=== PATIENT | female | born 1955 | race American Indian/Alaskan Native ===

== ENCOUNTER 2018-07-13 17:40 | Emergency (ER) | payer SELFPAY ==
[2018-07-13] MEDS ORDERED: NORCO 10/325 PO ONE (20:31)
--- NOTE | 2018-07-13 20:35 | Emergency Department Report ---
ED Recheck HPI - General Chief Complaint: Back Pain/Injury Stated Complaint: LOWER BACK PAIN TO RIGHT LEG Time Seen by Provider: 07/13/18 19:47 Source: patient Mode of arrival: Wheelchair Limitations: Physical Limitation - History of Present Illness Initial Comments: This is a 62-year-old female nontoxic in appearance with no signs of distress came in today with son requesting for with a medication refill. Patient stated that she came from a correction from [place] and Juan Ramirez is her primary care doctor. Patient stated that he refilled her medication called into pharmacy here in [place] but was not able to refill her 10 mg. Patient denies any symptoms. She states she has chronic back pain and this is what she takes medication. Patient denies any chest pain, short of breath, fever, chills , nausea, vomiting, headache or stiff neck. Patient denies any drug allergies. MD Complaint: medication refill request Returns Today for: request for prescription Symptoms Since Prior Visit: no new symptoms Associated Symptoms: none. denies: fever, chills, chest pain, shortness of breath, rash, malaise, nasuea, abdominal pain - Related Data Previous Rx's Medication Instructions Recorded Last Taken Type HYDROcodone/ACETAMINOPHEN [[place] 1 each PO DAILY PRN #6 tablet 07/13/18 Unknown Rx 10-325 Tablet] Allergies Allergy/AdvReac Type Severity Reaction Status Date / Time No Known Allergies Allergy Unverified 07/13/18 18:01 ED Review of Systems ROS: Stated complaint: LOWER BACK PAIN TO RIGHT LEG Other details as noted in HPI Constitutional: denies: chills, fever Eyes: denies: eye pain, eye discharge, vision change ENT: denies: ear pain, throat pain Respiratory: denies: cough, shortness of breath, wheezing Cardiovascular: denies: chest pain, palpitations Endocrine: no symptoms reported Gastrointestinal: denies: abdominal pain, nausea, diarrhea Genitourinary: denies: urgency, dysuria, discharge Musculoskeletal: back pain. 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 - Surgical History Additional Surgical History: cervical spine C7 fused with bone - Social History Smoking Status: Current Every Day Smoker Substance Use Type: None - Medications Home Medications: Home Medications Medication Instructions Recorded Confirmed Last Taken Type HYDROcodone/ACETAMINOPHEN [[place] 1 each PO DAILY PRN #6 tablet 07/13/18 Unknown Rx 10-325 Tablet] ED Physical Exam - General Limitations: No Limitations General appearance: alert, in no apparent distress - Head Head exam: Present: atraumatic, normocephalic - Eye Eye exam: Present: normal appearance Pupils: Present: normal accommodation - ENT ENT exam: Present: normal exam, mucous membranes moist - Neck Neck exam: Present: normal inspection, full ROM. Absent: tenderness, meningismus, lymphadenopathy - Respiratory Respiratory exam: Present: normal lung sounds bilaterally. Absent: respiratory distress, wheezes, rales, rhonchi, stridor, chest wall tenderness, accessory muscle use, decreased breath sounds, prolonged expiratory - Cardiovascular Cardiovascular Exam: Present: regular rate, normal rhythm, normal heart sounds. Absent: irregular rhythm, systolic murmur, diastolic murmur, rubs, gallop - GI/Abdominal GI/Abdominal exam: Present: soft, normal bowel sounds - Extremities Exam Extremities exam: Present: normal inspection, full ROM, normal capillary refill. Absent: tenderness, joint swelling - Back Exam Back exam: Present: normal inspection, full ROM, paraspinal tenderness (right sided paraspinal lumbar). Absent: tenderness, CVA tenderness (R), CVA tenderness (L), muscle spasm, vertebral tenderness, rash noted - Neurological Exam Neurological exam: Present: alert, oriented X3 - Psychiatric Psychiatric exam: Present: normal affect, normal mood - Skin Skin exam: Present: warm, dry, intact, normal color. Absent: rash ED Course Vital Signs 07/13/18 17:53 Temperature 97.9 F Pulse Rate 91 H Respiratory 16 Rate Blood Pressure 130/74 O2 Sat by Pulse 97 Oximetry - Reevaluation(s) Reevaluation #1: 07/13/18 20:36 Patient is speaking in full sentences with no signs of distress noted. ED Recheck MDM - Medical Decision Making Carrie MIGUEL has been ran and no indications of any narcotics being prescribed. I tried to call patients primary care doctor at with no answer or answering services. Patient does have a empty prescription of [place] 10 mg daily with orders to refill at 06/24/2018. I gave patient a dose of [place] in the ER due to sun the present stated he will junk the patient was discharged. I will refill a short course of [place] until she is able to see a PCP. Patient was instructed to Follow-up with a primary care doctor in 3-5 days or if symptoms worsen and continue return to emergency room as soon as possible. At time of discharge, the patient does not seem toxic or ill in appearance. No acute signs of distress noted. Patient agrees to discharge treatment plan of care. No further questions noted by the patient. Critical care attestation.: If time is entered above; I have spent that time in minutes in the direct care of this critically ill patient, excluding procedure time. ED Disposition Clinical Impression: Medication refill Chronic back pain Qualifiers: Back pain location: low back pain Back pain laterality: unspecified Sciatica presence: unspecified whether sciatica present Qualified Code(s): M54.5 - Low back pain Disposition: TO HOME OR SELFCARE Is pt being admited?: No Does the pt Need Aspirin: No Condition: Stable Instructions: Oxycodone/Acetaminophen (By mouth) Additional Instructions: Follow-up with a primary care doctor in 3-5 days or if symptoms worsen and continue return to emergency room as soon as possible. Prescriptions: HYDROcodone/ACETAMINOPHEN [[place] 10-325 Tablet] 1 each PO DAILY PRN #6 tablet PRN Reason: pain Referrals: PRIMARY CAREMD [Primary Care Provider] - 3-5 Days WILLIAM LENTZ MD [Staff Physician] - 3-5 Days DAYAN SOLORZANO MD [Referring] - 3-5 Days [facility] [Outside] - 3-5 Days [facility] [place] [Outside] - 3-5 Days
[2018-07-13 21:34] VITALS: BP 142/76
== END 2018-07-13 20:56 | disposition home or self-care (01) ==
LOC: ED 17:40
DX: M54.5 Low back pain (principal); Z76.0 Encounter for issue of repeat prescription; G89.29 Other chronic pain; F17.200 Nicotine dependence, unspecified, uncomplicated
CPT/HCPCS: 99282

== ENCOUNTER 2019-09-30 13:37 | Emergency (ER) | payer MEDICARE ==
[2019-09-30 14:19] VITALS: BP 133/98
--- NOTE | 2019-09-30 14:19 | Event Note ---
ED Screening Note Date of service: 09/30/19 Time: 14:16 ED Screening Note: Pt complains of urinary frequency and left lower abdominal pain x 2 days, left ear pain and ringing x 1 week, and 1 lb weight loss in 1 month denies fever 8/10 pain in abdomen negative L CVA tenderness denies hematochezia/melena or diverticulosis This initial assessment/diagnostic orders/clinical plan/treatment(s) is/are subject to change based on patients health status, clinical progression and re- assessment by fellow clinical providers in the ED. Further treatment and workup at subsequent clinical providers discretion. Patient/guardian urged not to elope from the ED as their condition may be serious if not clinically assessed and managed. Initial orders include: labs
[2019-09-30 15:07] LABS: Alanine Aminotransferase 11 units/L (7-56); Albumin 4.2 g/dL (3.9-5); BUN/Creatinine Ratio 17; Blood Urea Nitrogen 10 mg/dL (7-17); Calcium 9.8 mg/dL (8.4-10.2); Hemolysis Index 10
[2019-09-30 15:08] LABS: Basophils # (Auto) 0.1 K/mm3 (0.0-0.1); Basophils % (Auto) 1.4 % (0.0-1.8); Eosinophils # (Auto) 0.1 K/mm3 (0.0-0.4); Hematocrit 39.3 % (30.3-42.9); Lymphocytes # (Auto) 2.6 K/mm3 (1.2-5.4); Lymphocytes % (Auto) 50.8 % (13.4-35.0); Mean Corpuscular HGB Conc 33 % (30-34); Mean Corpuscular Volume 98 fl (79-97); Monocytes # (Auto) 0.3 K/mm3 (0.0-0.8); Platelet Count 435 K/mm3 (140-440); Red Cell Distribution Width 15.4 % (13.2-15.2)
[2019-09-30] MEDS ORDERED: SODIUM CHLORIDE 0.9% 1000 ML 1,000 ML IV ONE (15:36)
[2019-09-30] MEDS ORDERED: ONDANSETRON 4 MG/2 ML INJ IV ONE (15:36)
[2019-09-30] MEDS ORDERED: MORPHINE 2 MG/1 ML INJ IV ONE (15:36)
[2019-09-30 15:52] LABS: Bilirubin,Urine NEG (Negative); Blood,Urine NEG (Negative); Color,Urine Yellow (Yellow); Mucus,Urine FEW /HPF; Protein,Urine <15 mg/dL mg/dL (Negative); Urobilinogen,Urine < 2.0 mg/dL (<2.0)
--- NOTE | 2019-09-30 16:22 | Emergency Department Report ---
ED Abdominal Pain HPI - General Chief Complaint: Abdominal Pain Stated Complaint: R SIDE PAIN/FREQUENT URINATION Time Seen by Provider: 09/30/19 14:16 Source: patient Mode of arrival: Ambulatory Limitations: No Limitations - History of Present Illness Initial Comments: This is a 64-year-old female nontoxic, well nourished in appearance, no acute signs of distress presents to the ED with c/o of nausea and abdominal pain 2 days. Patient also stated has dysuria and urinary frequency. Denies any flank pain. Patient also stated has left side decreased hearing. Patient denies any vomiting. Patient describes abdominal pain as cramping and aching with level of 3/10 left lower side. Denies any ear pain or mastoid tenderness. Denies any ear canal discharge. Patient denies chest pain, short of breath, fever, chills, headache, stiff neck, numbness or tingling. Patient denies any diarrhea or constipation. Patient denies any recent travels. Patient denies any allergies. MD Complaint: abdominal pain -: days(s) (2) Location: LLQ Radiation: none Migration to: no migration Severity: mild Severity scale (0 -10): 8 Quality: cramping, aching Consistency: constant Improves With: nothing Worsens With: nothing Associated Symptoms: nausea, dysuria. denies: vomiting, diarrhea, fever, chills, constipation, hematemesis, hematochezia, melena, hematuria, anorexia, syncope - Related Data Previous Rx's Medication Instructions Recorded Last Taken Type HYDROcodone/ACETAMINOPHEN [[place] 1 each PO DAILY PRN #6 tablet 07/13/18 Unknown Rx 10-325 Tablet] Nitrofurantoin [place]/M-Cryst 100 mg PO Q12HR 7 Days #14 capsule 11/20/18 Unknown Rx [Macrobid CAP] Phenazopyridine [Pyridium] 100 mg PO TID #6 tab 11/20/18 Unknown Rx Acetaminophen/Codeine [Tylenol 1 tab PO Q6H PRN #12 tab 09/30/19 Unknown Rx /Codeine # 3 tab] Ondansetron [Zofran Odt] 4 mg PO Q8HR PRN #20 tab.rapdis 09/30/19 Unknown Rx Sulfamethoxazole/Trimethoprim 1 each PO BID #14 tablet 09/30/19 Unknown Rx [Bactrim DS TAB] Allergies Allergy/AdvReac Type Severity Reaction Status Date / Time No Known Allergies Allergy Verified 11/19/18 17:42 ED Review of Systems ROS: Stated complaint: R SIDE PAIN/FREQUENT URINATION Other details as noted in HPI Constitutional: denies: chills, fever Eyes: denies: eye pain, eye discharge, vision change ENT: denies: ear pain, throat pain Respiratory: denies: cough, shortness of breath, wheezing Cardiovascular: denies: chest pain, palpitations Endocrine: no symptoms reported Gastrointestinal: abdominal pain, nausea. denies: vomiting, diarrhea, constipation Genitourinary: dysuria, frequency. 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 CHRONIC NECK PAIN - Surgical History Additional Surgical History: cervical spine C7 fused with bone - Social History Smoking Status: Never Smoker Substance Use Type: None - Medications Home Medications: Home Medications Medication Instructions Recorded Confirmed Last Taken Type HYDROcodone/ACETAMINOPHEN [[place] 1 each PO DAILY PRN #6 tablet 07/13/18 Unknown Rx 10-325 Tablet] Nitrofurantoin [place]/M-Cryst 100 mg PO Q12HR 7 Days #14 capsule 11/20/18 Unknown Rx [Macrobid CAP] Phenazopyridine [Pyridium] 100 mg PO TID #6 tab 11/20/18 Unknown Rx Acetaminophen/Codeine [Tylenol 1 tab PO Q6H PRN #12 tab 09/30/19 Unknown Rx /Codeine # 3 tab] Ondansetron [Zofran Odt] 4 mg PO Q8HR PRN #20 tab.rapdis 09/30/19 Unknown Rx Sulfamethoxazole/Trimethoprim 1 each PO BID #14 tablet 09/30/19 Unknown Rx [Bactrim DS TAB] ED Physical Exam - General Limitations: No Limitations General appearance: alert, in no apparent distress - Head Head exam: Present: atraumatic, normocephalic - Expanded ENT Exam Expanded Ear exam: Present: normal external inspection TM/Canal exam: Cerumen Impaction: Left TM Mouth exam: Present: normal external inspection. Absent: drooling, trismus, muffled voice Teeth exam: Present: normal inspection Throat exam: Positive: normal inspection - Neck Neck exam: Present: normal inspection, full ROM. Absent: tenderness, meningismus, lymphadenopathy - Respiratory Respiratory exam: Present: normal lung sounds bilaterally. Absent: respiratory distress, wheezes, rales, rhonchi, stridor, chest wall tenderness, accessory muscle use, decreased breath sounds, prolonged expiratory - Cardiovascular Cardiovascular Exam: Present: regular rate, normal rhythm, normal heart sounds. Absent: bradycardia, tachycardia, irregular rhythm, systolic murmur, diastolic murmur, rubs, gallop - GI/Abdominal GI/Abdominal exam: Present: soft, tenderness (LLQ), normal bowel sounds. Absent: distended, guarding, rebound, rigid, diminished bowel sounds - Extremities Exam Extremities exam: Present: normal inspection, full ROM, normal capillary refill. Absent: tenderness - Back Exam Back exam: Present: normal inspection, full ROM. Absent: tenderness, CVA tenderness (R), CVA tenderness (L), muscle spasm, paraspinal tenderness, vertebral tenderness, rash noted - Neurological Exam Neurological exam: Present: alert, oriented X3, normal gait - Psychiatric Psychiatric exam: Present: normal affect, normal mood - Skin Skin exam: Present: warm, dry, intact, normal color. Absent: rash ED Course Vital Signs 09/30/19 13:47 Temperature 98.9 F Pulse Rate 89 Respiratory 18 Rate Blood Pressure 133/98 O2 Sat by Pulse 100 Oximetry - Reevaluation(s) Reevaluation #1: 09/30/19 16:28 Patient is speaking in full sentences with no signs of distress noted. ED Medical Decision Making - Lab Data Result diagrams: 09/30/19 14:30 09/30/19 14:30 - Medical Decision Making This is a 64-year-old female that presents with abdominal pain, nausea, UTI, and left ear cerumen impaction. Patient is stable and was examined by me. There is no abdominal tenderness. Negative signs of symptoms of appendicitis. Labs obtained. UA obtained. CT of abdomen obtained and dictated by the radiologist. Patient is notified of the report with no questions noted by the patient. Vital signs are stable prior to discharge. Patient received medical treatment in the ED which patient stated symptoms has resovled and subsided. Was instructed note to operate any machinery due to possible drowsiness and stated someone will drive the patient home. A by mouth challenge has been obtained and patient tolerated well with no nausea vomiting. Patient was also instructed to Follow- up with a primary care doctor in 3-5 days or if symptoms worsen and continue return to emergency room as soon as possible. At time of discharge, the patient does not seem toxic or ill in appearance. No acute signs of distress noted. Patient agrees to discharge treatment plan of care. No further questions noted by the patient. Critical care attestation.: If time is entered above; I have spent that time in minutes in the direct care of this critically ill patient, excluding procedure time. ED Disposition Clinical Impression: Left ear impacted cerumen, Nausea UTI (urinary tract infection) Qualifiers: Urinary tract infection type: acute cystitis Hematuria presence: without hemat uria Qualified Code(s): N30.00 - Acute cystitis without hematuria Abdominal pain Qualifiers: Abdominal location: unspecified location Qualified Code(s): R10.9 - Unspecified abdominal pain Disposition: TO HOME OR SELFCARE Is pt being admited?: No Does the pt Need Aspirin: No Condition: Stable Instructions: Abdominal Pain (ED), Acute Nausea and Vomiting (ED), Urinary Tract Infection in Women (ED) Additional Instructions: Follow-up with a primary care doctor in 3-5 days or if symptoms worsen and continue return to emergency room as soon as possible. Prescriptions: Sulfamethoxazole/Trimethoprim [Bactrim DS TAB] 1 each PO BID #14 tablet Acetaminophen/Codeine [Tylenol /Codeine # 3 tab] 1 tab PO Q6H PRN #12 tab PRN Reason: Pain , Severe (7-10) Ondansetron [Zofran Odt] 4 mg PO Q8HR PRN #20 tab.rapdis PRN Reason: Nausea Referrals: PRIMARY CARE, [Primary Care Provider] - 3-5 Days WILLIAM LENTZ MD [Staff Physician] - 3-[address] [facility] [Outside] - 3-[address] [facility] [Outside] - 3-5 Days Time of Disposition: 17:46
--- NOTE | 2019-09-30 16:42 | Cat Scan Report ---
CT ABDOMEN AND PELVIS WITH CONTRAST INDICATION: abd pain. TECHNIQUE: Axial CT images were obtained through the abdomen and pelvis after 100 cc Omnipaque [address] scans at this location are performed using CT dose reduction for ALARA by means of automated exposure control. COMPARISON: None available. FINDINGS: LOWER CHEST: Calcified right lower lobe granuloma. Left lung base is clear. LIVER: No significant abnormality. GALLBLADDER: Surgically absent. BILE DUCTS: Mild linear ductal dilatation with common bile duct measuring 11 mm. PANCREAS: No significant abnormality. SPLEEN: No significant abnormality. ADRENALS: No significant abnormality. RIGHT KIDNEY and URETER: No significant abnormality. LEFT KIDNEY and URETER: Simple 1.6 cm left renal cyst. STOMACH and SMALL BOWEL: No significant abnormality. COLON: Moderate amount of solid stool throughout colon characteristic for constipation. No bowel obst ruction. APPENDIX: No significant abnormality. PERITONEUM: No free fluid. No free air. No fluid collection. LYMPH NODES: No significant adenopathy. AORTA and ARTERIES: No significant abnormality. IVC and VEINS: No significant abnormality. URINARY BLADDER: No significant abnormality. REPRODUCTIVE ORGANS: No significant abnormality. ADDITIONAL FINDINGS: None. SKELETAL SYSTEM: Moderate scoliosis with convexity towards right centered at L2 with moderate degener ative changes of lumbar spine. Mild geographic osteonecrosis of both femoral heads with mild to moder ate degenerative arthrosis of right hip and mild degenerative arthrosis of left hip. IMPRESSION: 1. Moderate constipation. 2. Mild biliary ductal dilatation status post cholecystectomy. Please correlate with LFTs. 3. No acute inflammatory process or bowel obstruction. 4. Focal geographic osteonecrosis involving both femoral heads with mild left and mild to moderate ri ght hip degenerative arthrosis Signer Name: Petros Carlton MD Signed: 09/30/2019 4:37 PM Workstation Name: [id number]
== END 2019-09-30 18:47 | disposition home or self-care (01) ==
LOC: ED 13:37
DX: N39.0 Urinary tract infection, site not specified (principal); H61.22 Impacted cerumen, left ear; R10.9 Unspecified abdominal pain; M54.2 Cervicalgia; G89.29 Other chronic pain; Z79.899 Other long term (current) drug therapy
CPT/HCPCS: 36415; 74177; 80053; 81001; 83690; 85025; 87086; 96374; 96375; 99284; J2270; J2405; J7030; Q9967

== ENCOUNTER 2019-10-07 16:36 | Emergency (ER) | payer MEDICARE ==
[2019-10-07 16:50] VITALS: BP 107/66
--- NOTE | 2019-10-07 16:50 | Emergency Department Report ---
Blank Doc - Documentation Documentation: 64-year-old female that presents with frequent urination. Stated has been jordan ing bactrim. This initial assessment/diagnostic orders/clinical plan/treatment(s) is/are subject to change based on patient's health status, clinical progression and re- assessment by fellow clinical providers in the ED. Further treatment and workup at subsequent clinical providers discretion. Patient/guardians urged not to elope from the ED as their condition may be serious if not clinically assessed and managed. Initial orders include: 1- Patient sent to [facility] for further evaluation and treatment 2- UA
--- NOTE | 2019-10-07 18:33 | Emergency Department Report ---
ED Female HPI - General Chief complaint: Urogenital-Female Stated complaint: POSS UTI Time Seen by Provider: 10/07/19 16:45 Source: patient Mode of arrival: Wheelchair Limitations: No Limitations - History of Present Illness Initial comments: This is a 64-year-old -[place] female who presents to the emergency room with urinary frequency for 1 week. Patient states she is going to the restroom every 2 hours and also reports some pelvic pain. States she was seen in this emergency room last Tuesday and diagnosed with a urinary tract infection. Patient states she took her last Bactrim this morning. She denies dysuria, fever, chills, vaginal bleeding, or back pain. MD Complaint: other (urinary frequency) Onset/Timin -: week(s) Location: suprapubic Radiation: non-radiating Severity: moderate Severity scale (0 -10): 6 Quality: aching Consistency: intermittent Improves with: none Worsens with: urination Are you Now?: No Associated Symptoms: abdominal pain. denies: vaginal discharge, vaginal bleed ing, nausea/vomiting, fever/chills, headaches, loss of appetite, dysuria, hematuria, rash, seizure, shortness of breath, syncope, weakness - Related Data Previous Rx's Medication Instructions Recorded Last Taken Type HYDROcodone/ACETAMINOPHEN [[place] 1 each PO DAILY PRN #6 tablet 07/13/18 Unknown Rx 10-325 Tablet] Nitrofurantoin [place]/M-Cryst 100 mg PO Q12HR 7 Days #14 capsule 11/20/18 Unknown Rx [Macrobid CAP] Phenazopyridine [Pyridium] 100 mg PO TID #6 tab 11/20/18 Unknown Rx Acetaminophen/Codeine [Tylenol 1 tab PO Q6H PRN #12 tab 09/30/19 Unknown Rx /Codeine # 3 tab] Ondansetron [Zofran Odt] 4 mg PO Q8HR PRN #20 tab.rapdis 09/30/19 Unknown Rx Sulfamethoxazole/Trimethoprim 1 each PO BID #14 tablet 09/30/19 Unknown Rx [Bactrim DS TAB] Penicillin V Potassium 500 mg PO BID #14 tablet 10/07/19 Unknown Rx Allergies Allergy/AdvReac Type Severity Reaction Status Date / Time No Known Allergies Allergy Verified 11/19/18 17:42 ED Review of Systems ROS: Stated complaint: POSS UTI Other details as noted in HPI Constitutional: denies: chills, fever Respiratory: denies: cough, shortness of breath, wheezing Cardiovascular: denies: chest pain, palpitations Gastrointestinal: abdominal pain. denies: nausea, diarrhea Genitourinary: urgency, frequency. 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 CHRONIC NECK PAIN - Surgical History Past Surgical History?: Yes Additional Surgical History: cervical spine C7 fused with bone - Social History Smoking Status: Current Every Day Smoker Substance Use Type: None - Medications Home Medications: Home Medications Medication Instructions Recorded Confirmed Last Taken Type HYDROcodone/ACETAMINOPHEN [[place] 1 each PO DAILY PRN #6 tablet 07/13/18 Unknown Rx 10-325 Tablet] Nitrofurantoin [place]/M-Cryst 100 mg PO Q12HR 7 Days #14 capsule 11/20/18 Unknown Rx [Macrobid CAP] Phenazopyridine [Pyridium] 100 mg PO TID #6 tab 11/20/18 Unknown Rx Acetaminophen/Codeine [Tylenol 1 tab PO Q6H PRN #12 tab 09/30/19 Unknown Rx /Codeine # 3 tab] Ondansetron [Zofran Odt] 4 mg PO Q8HR PRN #20 tab.rapdis 09/30/19 Unknown Rx Sulfamethoxazole/Trimethoprim 1 each PO BID #14 tablet 09/30/19 Unknown Rx [Bactrim DS TAB] Penicillin V Potassium 500 mg PO BID #14 tablet 10/07/19 Unknown Rx ED Physical Exam - General Limitations: No Limitations General appearance: alert, in no apparent distress - Respiratory Respiratory exam: Present: normal lung sounds bilaterally. Absent: respiratory distress - Cardiovascular Cardiovascular Exam: Present: regular rate, normal rhythm. Absent: systolic murmur, diastolic murmur, rubs, gallop - GI/Abdominal GI/Abdominal exam: Present: soft, normal bowel sounds. Absent: distended, tenderness, guarding, rebound, rigid - Back Exam Back exam: Present: CVA tenderness (R). Absent: CVA tenderness (L) - Neurological Exam Neurological exam: Present: alert, oriented X3 - Psychiatric Psychiatric exam: Present: normal affect, normal mood - Skin Skin exam: Present: warm, dry, intact, normal color. Absent: rash ED Course Vital Signs 10/07/19 10/07/19 16:49 19:07 Temperature 99.5 F Pulse Rate 113 H 105 H Respiratory 20 17 Rate Blood Pressure 107/66 O2 Sat by Pulse 98 97 Oximetry ED Medical Decision Making - Lab Data Lab Results 10/07/19 Range/Units 18:29 Urine Color Yellow (Yellow) Urine Turbidity Clear (Clear) Urine pH 6.0 (5.0-7.0) Ur Specific [place] 1.011 (1.003-1.030) Urine Protein <15 mg/dl (Negative) mg/dL Urine Glucose (UA) Neg (Negative) mg/dL Urine Ketones Neg (Negative) mg/dL Urine Blood Neg (Negative) Urine Nitrite Neg (Negative) Urine Bilirubin Neg (Negative) Urine Urobilinogen < 2.0 (<2.0) mg/dL Ur Leukocyte Esterase Tr (Negative) Urine WBC (Auto) 1.0 (0.0-6.0) /HPF Urine RBC (Auto) < 1.0 (0.0-6.0) /HPF U Epithel Cells (Auto) 1.0 (0-13.0) /HPF - Medical Decision Making Patient was examined by me. Patient is nontoxic appearing and stable. Vitals are stable. CVA tenderness on the right and negative abdominal tenderness. Obtained urinalysis, trace leukocyte esterase. Reviewed culture from October 02, 2019 visit positive for group B strep. Patient completed Bactrim which is not sensitive to group B strep. Start penicillin. Patient informed of results. Instructed to take Tylenol or ibuprofen for pain. Follow up with PCP or return to the ER with worsening symptoms. Patient discharged home in stable condition. Critical care attestation.: If time is entered above; I have spent that time in minutes in the direct care of this critically ill patient, excluding procedure time. ED Disposition Clinical Impression: Symptoms of urinary tract infection UTI (urinary tract infection) Qualifiers: Urinary tract infection type: acute cystitis Hematuria presence: without hematuria Qualified Code(s): N30.00 - Acute cystitis without hematuria Disposition: TO HOME OR SELFCARE Is pt being admited?: No Condition: Stable Instructions: Urinary Tract Infection in Women (ED) Additional Instructions: Increase fluid intake to 1L-2L daily. Prescriptions: Penicillin V Potassium 500 mg PO BID #14 tablet Referrals: [facility] [Outside] - 3-5 Days [facility] [Provider Group] - 3-5 Days [facility] [Provider Group] - 3-5 Days Forms: Work/School Release Form(ED) Time of Disposition: 19:13
[2019-10-07 18:46] LABS: Bilirubin,Urine NEG (Negative); Blood,Urine NEG (Negative); Color,Urine Yellow (Yellow); Protein,Urine <15 mg/dL mg/dL (Negative); RBC,Urine < 1.0 /HPF (0.0-6.0); Urobilinogen,Urine < 2.0 mg/dL (<2.0)
[2019-10-07] MEDS ORDERED: PENICILLIN V POTASSIUM 250 MG TAB PO ONE (19:29)
== END 2019-10-07 19:46 | disposition home or self-care (01) ==
LOC: ED 16:36
DX: N39.0 Urinary tract infection, site not specified (principal); M54.2 Cervicalgia; G89.29 Other chronic pain; F17.200 Nicotine dependence, unspecified, uncomplicated; Z79.899 Other long term (current) drug therapy
CPT/HCPCS: 81001; 87086

== ENCOUNTER 2019-10-11 18:09 | Emergency (ER) | payer MEDICARE ==
--- NOTE | 2019-10-11 23:32 | Emergency Department Report ---
ED Abdominal Pain HPI - General Chief Complaint: Abdominal Pain Stated Complaint: UTI/ABD PAIN Time Seen by Provider: 10/11/19 20:04 Source: patient Mode of arrival: Wheelchair Limitations: No Limitations - History of Present Illness Initial Comments: This is a pleasant 64-year-old female presents to the emergency department with chief complaint of urinary frequency. She states she has been in this emergency department twice for the same complaint and was initially told she had a urinary tract infection was given Bactrim for treatment the second time she returned the urine culture showed strep so the prescription was changed to penicillin. The p atient states she has not had any relief in her symptoms and is also complaining of some left lower quadrant abdominal pain that has been persistent during this time. She denies any associated fevers, chills, night sweats, headache, dizziness, blurry vision, chest pain, shortness of breath, nausea, vomiting, diarrhea, hematemesis, melena, she C, hematuria, dysuria or any other associated symptoms. MD Complaint: abdominal pain - Related Data Previous Rx's Medication Instructions Recorded Last Taken Type HYDROcodone/ACETAMINOPHEN [[place] 1 each PO DAILY PRN #6 tablet 07/13/18 Unknown Rx 10-325 Tablet] Nitrofurantoin [place]/M-Cryst 100 mg PO Q12HR 7 Days #14 capsule 11/20/18 Unknown Rx [Macrobid CAP] Phenazopyridine [Pyridium] 100 mg PO TID #6 tab 11/20/18 Unknown Rx Acetaminophen/Codeine [Tylenol 1 tab PO Q6H PRN #12 tab 09/30/19 Unknown Rx /Codeine # 3 tab] Ondansetron [Zofran Odt] 4 mg PO Q8HR PRN #20 tab.rapdis 09/30/19 Unknown Rx Sulfamethoxazole/Trimethoprim 1 each PO BID #14 tablet 09/30/19 Unknown Rx [Bactrim DS TAB] Penicillin V Potassium 500 mg PO BID #14 tablet 10/07/19 Unknown Rx Ciprofloxacin HCl [Ciprofloxacin 500 mg PO Q12HR #20 tab 10/12/19 Unknown Rx TAB] Fluconazole [Diflucan TAB] 150 mg PO ONCE #2 tablet 10/12/19 Unknown Rx Oxybutynin [Ditropan] 5 mg PO BID #10 tablet 10/12/19 Unknown Rx Allergies Allergy/AdvReac Type Severity Reaction Status Date / Time No Known Allergies Allergy Verified 11/19/18 17:42 ED Review of Systems ROS: Stated complaint: UTI/ABD PAIN Other details as noted in HPI Comment: All other systems reviewed and negative Constitutional: denies: chills, fever Eyes: denies: eye pain, eye discharge, vision change ENT: denies: ear pain, throat pain Respiratory: denies: cough, shortness of breath, wheezing Cardiovascular: denies: chest pain, palpitations Endocrine: no symptoms reported Gastrointestinal: as per HPI, abdominal pain. denies: nausea, diarrhea Genitourinary: as per HPI, frequency. 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 CHRONIC NECK PAIN - Surgical History Past Surgical History?: Yes Additional Surgical History: cervical spine C7 fused with bone - Social History Smoking Status: Current Every Day Smoker Substance Use Type: None - Medications Home Medications: Home Medications Medication Instructions Recorded Confirmed Last Taken Type HYDROcodone/ACETAMINOPHEN [[place] 1 each PO DAILY PRN #6 tablet 07/13/18 Unknown Rx 10-325 Tablet] Nitrofurantoin Pope/M-Cryst 100 mg PO Q12HR 7 Days #14 capsule 11/20/18 Unknown Rx [Macrobid CAP] Phenazopyridine [Pyridium] 100 mg PO TID #6 tab 11/20/18 Unknown Rx Acetaminophen/Codeine [Tylenol 1 tab PO Q6H PRN #12 tab 09/30/19 Unknown Rx /Codeine # 3 tab] Ondansetron [Zofran Odt] 4 mg PO Q8HR PRN #20 tab.rapdis 09/30/19 Unknown Rx Sulfamethoxazole/Trimethoprim 1 each PO BID #14 tablet 09/30/19 Unknown Rx [Bactrim DS TAB] Penicillin V Potassium 500 mg PO BID #14 tablet 10/07/19 Unknown Rx Ciprofloxacin HCl [Ciprofloxacin 500 mg PO Q12HR #20 tab 10/12/19 Unknown Rx TAB] Fluconazole [Diflucan TAB] 150 mg PO ONCE #2 tablet 10/12/19 Unknown Rx Oxybutynin [Ditropan] 5 mg PO BID #10 tablet 10/12/19 Unknown Rx ED Physical Exam - General Limitations: No Limitations General appearance: alert, in no apparent distress - Head Head exam: Present: atraumatic, normocephalic - Eye Eye exam: Present: normal appearance, PERRL, EOMI Pupils: Present: normal accommodation - ENT ENT exam: Present: normal exam, mucous membranes moist - Neck Neck exam: Present: normal inspection, full ROM. Absent: tenderness, meningismus - Respiratory Respiratory exam: Present: normal lung sounds bilaterally. Absent: respiratory distress, wheezes, rales, rhonchi, stridor - Cardiovascular Cardiovascular Exam: Present: regular rate, normal rhythm, normal heart sounds. Absent: systolic murmur, diastolic murmur, rubs, gallop - GI/Abdominal GI/Abdominal exam: Present: soft, tenderness (mild tenderness to left lower quadrant), normal bowel sounds. Absent: distended, guarding, rebound, rigid - Extremities Exam Extremities exam: Present: normal inspection. Absent: full ROM, tenderness - Back Exam Back exam: Present: normal inspection - Neurological Exam Neurological exam: Present: alert, oriented X3 - Psychiatric Psychiatric exam: Present: normal affect, normal mood - Skin Skin exam: Present: warm, dry, intact, normal color. Absent: rash ED Medical Decision Making - Lab Data Result diagrams: 10/11/19 23:29 10/11/19 23:29 Lab Results 10/11/19 10/11/19 10/12/19 Range/Units 23:29 23:29 00:36 WBC 6.6 (4.5-11.0) K/mm3 RBC 4.06 (3.65-5.03) M/mm3 Hgb 13.5 (10.1-14.3) gm/dl Hct 39.7 (30.3-42.9) % MCV 98 H (79-97) fl MCH 33 H (28-32) pg MCHC 34 (30-34) % RDW 14.7 (13.2-15.2) % Plt Count 268 (140-440) K/mm3 Lymph % (Auto) Cnc Cutting Operator Add Manual Diff Complete Total Counted 100 Seg Neutrophils % Cnc Cutting Operator Seg Neuts % (Manual) 30.0 L (40.0-70.0) % Band Neutrophils % 0 % Lymphocytes % (Manual) 64.0 H (13.4-35.0) % Reactive Lymphs % (Man) 0 % Monocytes % (Manual) 4.0 (0.0-7.3) % Eosinophils % (Manual) 2.0 (0.0-4.3) % Basophils % (Manual) 0 (0.0-1.8) % Metamyelocytes % 0 % Myelocytes % 0 % Promyelocytes % 0 % Blast Cells % 0 % Nucleated RBC % Not Reportable Seg Neutrophils # Man 2.0 (1.8-7.7) K/mm3 Band Neutrophils # 0.0 K/mm3 Lymphocytes # (Manual) 4.2 (1.2-5.4) K/mm3 Abs React Lymphs (Man) 0.0 K/mm3 Monocytes # (Manual) 0.3 (0.0-0.8) K/mm3 Eosinophils # (Manual) 0.1 (0.0-0.4) K/mm3 Basophils # (Manual) 0.0 (0.0-0.1) K/mm3 Metamyelocytes # 0.0 K/mm3 Myelocytes # 0.0 K/mm3 Promyelocytes # 0.0 K/mm3 Blast Cells # 0.0 K/mm3 WBC Morphology Not Reportable Hypersegmented Neuts Not Reportable Hyposegmented Neuts Not Reportable Hypogranular Neuts Not Reportable Smudge Cells Not Reportable Toxic Granulation Not Reportable Toxic Vacuolation Not Reportable Dohle Bodies Not Reportable Pelger-Huet Anomaly Not Reportable Suzie Rods Not Reportable Platelet Estimate Consistent w auto Clumped Platelets Not Reportable Plt Clumps, EDTA Not Reportable Large Platelets Not Reportable Giant Platelets Not Reportable Platelet Satelliting Not Reportable Plt Morphology Comment Not Reportable RBC Morphology Not Reportable Dimorphic RBCs Not Reportable Polychromasia Not Reportable Hypochromasia Not Reportable Poikilocytosis Not Reportable Anisocytosis Not Reportable Microcytosis Not Reportable Macrocytosis Not Reportable Spherocytes Not Reportable Pappenheimer Bodies Not Reportable Sickle Cells Not Reportable Target Cells Not Reportable Tear Drop Cells Not Reportable Ovalocytes Not Reportable Helmet Cells Not Reportable Julio-[place] Bodies Not Reportable [place] Rings Not Reportable Ghassan Cells Not Reportable Bite Cells Not Reportable Crenated Cell Not Reportable Elliptocytes Rare Acanthocytes (Spur) Not Reportable Rouleaux Not Reportable Hemoglobin C Crystals Not Reportable Schistocytes Not Reportable Malaria parasites Not Reportable Bo Bodies Not Reportable Hem Pathologist Commnt No Sodium 140 (137-145) mmol/L Potassium 4.1 (3.6-5.0) mmol/L Chloride 101.9 (98-107) mmol/L Carbon Dioxide 23 (22-30) mmol/L Anion Gap 19 mmol/L BUN 9 (7-17) mg/dL Creatinine 0.6 L (0.7-1.2) mg/dL Estimated GFR > 60 ml/min BUN/Creatinine Ratio 15 % Glucose 103 H (65-100) mg/dL Calcium 9.5 (8.4-10.2) mg/dL Total Bilirubin 0.30 (0.1-1.2) mg/dL AST 19 (5-40) units/L ALT 12 (7-56) units/L Alkaline Phosphatase 78 (35-129) units/L Total Protein 7.2 (6.3-8.2) g/dL Albumin 3.9 (3.9-5) g/dL Albumin/Globulin Ratio 1.2 % Urine Color Yellow (Yellow) Urine Turbidity Clear (Clear) Urine pH 5.0 (5.0-7.0) Ur Specific [place] 1.011 (1.003-1.030) Urine Protein <15 mg/dl (Negative) mg/dL Urine Glucose (UA) Neg (Negative) mg/dL Urine Ketones Neg (Negative) mg/dL Urine Blood Neg (Negative) Urine Nitrite Neg (Negative) Urine Bilirubin Neg (Negative) Urine Urobilinogen < 2.0 (<2.0) mg/dL Ur Leukocyte Esterase Tr (Negative) Urine WBC (Auto) 10.0 H (0.0-6.0) /HPF Urine RBC (Auto) 2.0 (0.0-6.0) /HPF U Epithel Cells (Auto) 1.0 (0-13.0) /HPF Urine Yeast (Budding) 3+ /HPF - Medical Decision Making Patient's nontoxic in no acute chest. Bowels are stable. Patient had some very mild tenderness in the left lower quadrant that has been persistent during the last 3 weeks. She had a CT 12 days ago that showed chronic findings but no acute findings. Urine at that time showed a UTI and she was treated as such. She had return pedis later with similar symptoms and was again treated with antibiotics. She returns now for the third visit not complaining of dysuria or urgency frequency. I ordered labs and urine urine did show some white blood cells and chemistries consistent with urinary tract infection due to her symptoms I will treat. Urine culture was also sent. The patient was describing symptoms and overactive bladder so we'll do a trial oxybutynin see if this helps her symptoms. I did recommend urology follow up in strict return precautions for any change or worsening symptoms. There are CAT scan of the emergency department however the patient stated declined it due to her symptoms being similar to her previous CAT scan. She understood that without this image I cannot rule out an acute inflammatory process that could potentially be going on and she verbalizes understanding of the risk of not getting this test and potential life-threatening disease that could be misdiagnosed. She is competent. - Differential Diagnosis UTI, overactive bladder, diverticulitis Critical care attestation.: If time is entered above; I have spent that time in minutes in the direct care of this critically ill patient, excluding procedure time. ED Disposition Clinical Impression: Urinary frequency Disposition: DC-01 TO HOME OR SELFCARE Is pt being admited?: No Condition: Stable Instructions: Dysuria (ED) Prescriptions: Ciprofloxacin HCl [Ciprofloxacin TAB] 500 mg PO Q12HR #20 tab Fluconazole [Diflucan TAB] 150 mg PO ONCE #2 tablet Oxybutynin [Ditropan] 5 mg PO BID #10 tablet Referrals: PRIMARY MD BRANDON [Primary Care Provider] - 3-5 Days LIZANDRO KAPADIA MD [Staff Physician] - 3-5 Days Time of Disposition: 02:05
[2019-10-11 23:52] LABS: Hematocrit 39.7 % (30.3-42.9); Hemoglobin 13.5 gm/dl (10.1-14.3); Mean Corpuscular HGB Conc 34 % (30-34); Mean Corpuscular Volume 98 fl (79-97); Platelet Count 268 K/mm3 (140-440); Red Blood Count 4.06 M/mm3 (3.65-5.03); Red Cell Distribution Width 14.7 % (13.2-15.2)
[2019-10-12 00:17] LABS: Alanine Aminotransferase 12 units/L (7-56); Albumin 3.9 g/dL (3.9-5); BUN/Creatinine Ratio 15; Blood Urea Nitrogen 9 mg/dL (7-17); Calcium 9.5 mg/dL (8.4-10.2); Hemolysis Index 12
[2019-10-12 01:00] LABS: Bilirubin,Urine NEG (Negative); Blood,Urine NEG (Negative); Color,Urine Yellow (Yellow); Protein,Urine <15 mg/dL mg/dL (Negative); Urobilinogen,Urine < 2.0 mg/dL (<2.0)
[2019-10-12 01:33] LABS: Basophils % (Manual) 0 % (0.0-1.8); Total Cells Counted 100
[2019-10-12 01:34] LABS: Platelet Estimate Consistent w Auto
[2019-10-12] MEDS ORDERED: OXYBUTYNIN 5 MG TAB PO ONE (02:09)
[2019-10-12] MEDS ORDERED: levoFLOXacin 500 MG TAB PO ONE (02:09)
[2019-10-12 03:25] VITALS: BP 107/67
== END 2019-10-12 02:45 | disposition home or self-care (01) ==
LOC: ED 18:09
DX: R35.0 Frequency of micturition (principal); G89.29 Other chronic pain; F17.200 Nicotine dependence, unspecified, uncomplicated; Z79.899 Other long term (current) drug therapy
CPT/HCPCS: 36415; 80053; 81001; 85007; 85025; 87086

== ENCOUNTER 2020-04-23 09:56 | Outpatient (CLI) | payer MEDICARE ==
[2020-04-23] MEDS ORDERED: LIDOCAINE (4%) 40 MG/ML TOPICAL SOLN 50 ML BOTTLE TP ONE (10:16)
== END 2020-04-23 09:57 | disposition home or self-care (01) ==
LOC: WOUND 09:56
PROVIDERS: ATTEND Surgery
DX: L89.313 Pressure ulcer of right buttock, stage 3 (principal); G82.22 Paraplegia, incomplete; F32.9 Major depressive disorder, single episode, unspecified; F17.210 Nicotine dependence, cigarettes, uncomplicated; Z86.718 Personal history of other venous thrombosis and embolism; Z96.651 Presence of right artificial knee joint
CPT/HCPCS: 11042; G0463; 99205; 99215

== ENCOUNTER 2020-05-01 13:10 | Outpatient (CLI) | payer MEDICARE ==
[2020-05-01] MEDS ORDERED: LIDOCAINE (4%) 40 MG/ML TOPICAL SOLN 50 ML BOTTLE TP ONE (14:07)
== END 2020-05-01 13:11 | disposition home or self-care (01) ==
LOC: WOUND 13:10
PROVIDERS: ATTEND Surgery
DX: L89.313 Pressure ulcer of right buttock, stage 3 (principal); G82.22 Paraplegia, incomplete; F32.9 Major depressive disorder, single episode, unspecified; F17.210 Nicotine dependence, cigarettes, uncomplicated; Z86.718 Personal history of other venous thrombosis and embolism; Z96.651 Presence of right artificial knee joint

== ENCOUNTER 2020-05-08 12:52 | Outpatient (CLI) | payer MEDICARE | END 2020-05-08 12:53 | disposition home or self-care (01) | LOC: WOUND 12:52 | PROVIDERS: ATTEND Surgery | DX: L89.319 Pressure ulcer of right buttock, unspecified stage (principal); G82.22 Paraplegia, incomplete; F32.9 Major depressive disorder, single episode, unspecified; F17.210 Nicotine dependence, cigarettes, uncomplicated; Z86.718 Personal history of other venous thrombosis and embolism; Z96.651 Presence of right artificial knee joint | CPT/HCPCS: 99213; G0463 ==

== ENCOUNTER 2020-05-19 12:06 | Outpatient (CLI) | payer MEDICARE ==
--- NOTE | 2020-05-19 13:57 | Cat Scan Report ---
CT CERVICAL SPINE: 05/19/2020 INDICATION / CLINICAL INFORMATION: CERVICAL RADICULITIS. COMPARISON: None available. FINDINGS: CT images of the cervical spine were obtained. Images are evaluated in the axial, coronal, and sagitt al planes. Extensive postoperative changes are present. There is prominent left convex scoliosis and reversal o f normal cervical lordosis in the sagittal plane. There is been apparent interbody fusion from C3 through C6. Posterior fusion of the facet joints is a lso present at these levels. Postsurgical fusion wire is associated with the spinous processes of the C5 and C6 levels. There is diffuse disc bulging present at the C6-7 level, more pronounced on the left. Moderately robson re central canal narrowing is present, associated with left-sided foraminal narrowing. C7-T1: There is also evidence of left-sided foraminal narrowing, some associated with diffuse disc bu lging and the scoliosis. The canal and foramina are well preserved through the fused C3-C6 levels. At C2-3: Diffuse disc bulging is present associated with prominent right-sided facet degenerative kirby nges. : . CRANIOCERVICAL JUNCTION: No significant abnormality. PARASPINAL STRUCTURES: Unremarkable IMPRESSION: Postoperative and degenerative changes. Left-sided foraminal narrowing at C6-7 and C7-T1 All CT scans at this location are performed using dose reduction to ALARA by means of automated expos ure control. Signer Name: Bob Rodriguez MD Signed: 05/19/2020 1:53 PM Workstation Name: [id number]
== END 2020-05-19 12:07 | disposition home or self-care (01) ==
LOC: CT 12:06
PROVIDERS: ATTEND Family Medicine
DX: M50.23 Other cervical disc displacement, cervicothoracic region (principal); M47.812 Spondylosis without myelopathy or radiculopathy, cervical region; M48.02 Spinal stenosis, cervical region; M43.22 Fusion of spine, cervical region; M41.82 Other forms of scoliosis, cervical region; Z98.890 Other specified postprocedural states
CPT/HCPCS: 72125

== ENCOUNTER 2020-07-10 10:33 | Emergency (ER) | payer MEDICARE ==
[2020-07-10 11:19] VITALS: BP 123/81
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
== END 2020-07-10 13:52 | disposition home or self-care (01) ==
LOC: ED 10:33
DX: L89.320 Pressure ulcer of left buttock, unstageable (principal); F17.200 Nicotine dependence, unspecified, uncomplicated; Z79.899 Other long term (current) drug therapy; Z79.2 Long term (current) use of antibiotics
CPT/HCPCS: 99282

== ENCOUNTER 2020-07-16 09:37 | Outpatient (CLI) | payer MEDICARE ==
[2020-07-16] MEDS ORDERED: LIDOCAINE (4%) 40 MG/ML TOPICAL SOLN 50 ML BOTTLE TP ONE (09:57)
== END 2020-07-16 09:38 | disposition home or self-care (01) ==
LOC: WOUND 09:37
PROVIDERS: ATTEND Surgery
DX: L89.313 Pressure ulcer of right buttock, stage 3 (principal); G82.22 Paraplegia, incomplete; F32.9 Major depressive disorder, single episode, unspecified; F17.210 Nicotine dependence, cigarettes, uncomplicated; Z86.718 Personal history of other venous thrombosis and embolism; Z96.651 Presence of right artificial knee joint

== ENCOUNTER 2020-07-30 10:41 | Outpatient (CLI) | payer MEDICARE ==
[2020-07-30] MEDS ORDERED: LIDOCAINE (4%) 40 MG/ML TOPICAL SOLN 50 ML BOTTLE TP ONE (11:30)
== END 2020-07-30 10:42 | disposition home or self-care (01) ==
LOC: WOUND 10:41
PROVIDERS: ATTEND Surgery
DX: L89.313 Pressure ulcer of right buttock, stage 3 (principal); G82.22 Paraplegia, incomplete; F32.9 Major depressive disorder, single episode, unspecified; F17.210 Nicotine dependence, cigarettes, uncomplicated; Z86.718 Personal history of other venous thrombosis and embolism; Z96.651 Presence of right artificial knee joint
CPT/HCPCS: 99213; G0463

== ENCOUNTER 2020-08-31 20:17 | Emergency (ER) | payer MEDICARE ==
[2020-08-31 22:18] VITALS: BP 134/84
[2020-09-01] MEDS ORDERED: ONDANSETRON 4 MG ODT TAB PO ONE (02:01)
[2020-09-01] MEDS ORDERED: MUPIROCIN 2% OINT 22 GM TP ONE (02:01)
[2020-09-01] MEDS ORDERED: HYDROcodone/ACETAMINOPHEN 5-325 MG TAB PO ONE (02:01)
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
== END 2020-09-01 03:32 | disposition home or self-care (01) ==
LOC: ED 20:17
DX: L89.312 Pressure ulcer of right buttock, stage 2 (principal); G89.4 Chronic pain syndrome; Z86.711 Personal history of pulmonary embolism; F17.200 Nicotine dependence, unspecified, uncomplicated; Z98.890 Other specified postprocedural states; Z79.1 Long term (current) use of non-steroidal anti-inflammatories (NSAID); Z79.2 Long term (current) use of antibiotics; Z79.899 Other long term (current) drug therapy
CPT/HCPCS: Q0162

== ENCOUNTER 2020-10-30 15:13 | Inpatient (IN) | payer MEDICARE ==
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
[2020-10-30 19:11] LABS: Basophils # (Auto) 0.1 K/mm3 (0.0-0.1); Basophils % (Auto) 0.8 % (0.0-1.8); Eosinophils # (Auto) 0.3 K/mm3 (0.0-0.4); Eosinophils % (Auto) 4.3 % (0.0-4.3); Hemoglobin 6.8 gm/dl (10.1-14.3); Lymphocytes % (Auto) 47.4 % (13.4-35.0); Mean Corpuscular HGB Conc 29 % (30-34); Monocytes # (Auto) 0.3 K/mm3 (0.0-0.8); Monocytes % (Auto) 4.7 % (0.0-7.3); Platelet Count 321 K/mm3 (140-440); Red Blood Count 3.32 M/mm3 (3.65-5.03)
[2020-10-30 19:12] LABS: Mean Corpuscular Volume 69 fl (79-97); Red Cell Distribution Width 20.4 % (13.2-15.2)
[2020-10-30 19:32] LABS: Alanine Aminotransferase 8 units/L (7-56); Albumin 3.8 g/dL (3.9-5); Blood Urea Nitrogen 11 mg/dL (7-17); Calcium 9.1 mg/dL (8.4-10.2); Hemolysis Index 3
[2020-10-30 19:33] LABS: BUN/Creatinine Ratio 16
--- NOTE | 2020-10-30 19:47 | XRay Report ---
SACRUM AND COCCYX 3 VIEWS INDICATION: [place]. COMPARISON: No relevant prior imaging study available. FINDINGS: No acute skeletal abnormality. There appears to be soft tissue gas superficial to the lower sacrum. IMPRESSION: 1. Soft tissue gas superficial to the lower sacrum consistent with decubitus ulcer. Limited evaluatio n of the bones; no obvious osteomyelitis. Signer Name: Ramón Ayoub MD Signed: 10/30/2020 7:43 PM Workstation Name: [id number]
[2020-10-30] MEDS ORDERED: SODIUM CHLORIDE 0.9% 500 ML 500 ML IV ONE (21:00)
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
[2020-10-30] MEDS ORDERED: SODIUM CHLORIDE 0.9% 1000 ML 1,000 ML ONE (22:40)
[2020-10-31] MEDS ORDERED: MAGNESIUM HYDROXIDE (MOM) ORAL LIQD UDC PO PRN (01:08)
[2020-10-31] MEDS ORDERED: ACETAMINOPHEN 325 MG TAB PO PRN (01:08)
[2020-10-31] MEDS ORDERED: ONDANSETRON 4 MG/2 ML INJ IV PRN (01:08)
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
[2020-10-31] MEDS: MORPHINE 2 MG/1 ML INJ IV PRN ×3 (01:34→13:58)
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
[2020-10-31] MEDS: OXYBUTYNIN 5 MG TAB PO SCH ×2 (13:57→21:49)
[2020-10-31 15:04] LABS: Hematocrit 26.7 % (30.3-42.9); Hemoglobin 8.1 gm/dl (10.1-14.3)
[2020-10-31] MEDS ORDERED: hydrALAZINE 20 MG/1 ML INJ IV PRN (16:29)
[2020-10-31] MEDS ORDERED: guaiFENesin/CODEINE 100-10MG ORAL LIQD 5 ML PO PRN (16:32)
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
--- NOTE | 2020-10-31 17:19 | XRay Report ---
CHEST 1 VIEW INDICATION / CLINICAL INFORMATION: Cough. FINDINGS: SUPPORT DEVICES: None. HEART / MEDIASTINUM: No significant abnormality. LUNGS / PLEURA: There is mild left lower lobe airspace pneumonia. The right lung is clear. Signer Name: Kam Carballo MD Signed: 10/31/2020 5:14 PM Workstation Name: [id number]
[2020-10-31] MEDS ORDERED: ENOXAPARIN 30 MG/0.3 ML INJ SUB-Q SCH (18:00)
[2020-10-31] MEDS: cefTRIAXone/NS 2 GM/100 ML 2 GM/100 ML BAG IV SCH (19:17)
[2020-10-31] MEDS: amLODIPine 5 MG TAB PO SCH (19:17)
[2020-10-31] MEDS: AZITHROMYCIN 250 MG TAB PO SCH (19:19)
[2020-10-31] MEDS: ENOXAPARIN 40 MG/0.4 ML INJ SUB-Q SCH (19:21)
[2020-10-31 21:47] LABS: C-Reactive Protein 0.1 mg/dL (0.00-1.30)
[2020-10-31] MEDS: oxyCODONE /ACETAMINOPHEN 5-325MG TAB PO PRN (21:49)
[2020-10-31] MEDS: DOCUSATE SODIUM 100 MG CAP PO SCH (21:50)
[2020-11-01] MEDS: oxyCODONE /ACETAMINOPHEN 5-325MG TAB PO PRN ×3 (03:51→17:06)
[2020-11-01 05:59] LABS: Basophils # (Auto) 0.1 K/mm3 (0.0-0.1); Basophils % (Auto) 0.9 % (0.0-1.8); Eosinophils # (Auto) 0.2 K/mm3 (0.0-0.4); Lymphocytes # (Auto) 2.1 K/mm3 (1.2-5.4); Lymphocytes % (Auto) 34.4 % (13.4-35.0); Mean Corpuscular HGB Conc 30 % (30-34); Mean Corpuscular Volume 73 fl (79-97); Monocytes # (Auto) 0.5 K/mm3 (0.0-0.8); Platelet Count 297 K/mm3 (140-440); Red Blood Count 3.98 M/mm3 (3.65-5.03)
[2020-11-01 06:01] LABS: INR 1.16 (0.87-1.13)
[2020-11-01 06:06] LABS: Blood Urea Nitrogen 11 mg/dL (7-17); Hemolysis Index 0
[2020-11-01 06:08] LABS: Hematocrit 28.9 % (30.3-42.9); Hemoglobin 8.5 gm/dl (10.1-14.3)
[2020-11-01 06:14] LABS: BUN/Creatinine Ratio 18
--- NOTE | 2020-11-01 07:35 | Progress Note ---
Assessment and Plan Assessment and plan: (1) COVID-19 Current Visit: Yes Status: Acute Plan to address problem: On 10/31 patient stated that she tested positive for COVID-19 at her outside facility prior to presentation however she withheld this information at admission 10/31 COVID-19 PCR positive Contact/droplet isolation Infectious disease consulted Patient does not have any acute respiratory failure at this time Stat CRP, LDH, ferritin, D-dimer ordered Trend Covid inflammatory markers 10/31 started azithromycin and Rocephin empirically, will stop if procalcitonin less than 0.05 Pulmonary hygiene Supplemental oxygen as needed OOB 3 times daily Prone to sleep as needed (2) Anemia Current Visit: Yes Status: Acute Plan to address problem: Presented with H&H 6.8/23 S/p 1 unit PRBC Repeat H&H 8./.7 Per ED documentation patient had bleeding from her sacral wound Trend CBC Transfuse for hemoglobin less than 7 (3) Decubitus ulcer, buttock Current Visit: Yes Status: Acute Plan to address problem: Patient presented with a decubitus ulcer on her buttock Wound care consulted Sacrum/coccyx x-ray showed soft tissue gas superficial to the lower sacrum consistent with decubitus ulcer, limited evaluation of the bones but no obvious osteomyelitis Supportive care Turn every 2 and as needed for comfort As needed analgesics (4) Elevated blood pressure reading without diagnosis of hypertension Current Visit: Yes Status: Acute Plan to address problem: Patient does not have a history of hypertension Patient has been having elevated blood pressure readings 10/31 started Norvasc, titrate as needed Blood pressure monitoring per protocol Hydralazine as needed for SBP greater than 160 (5) Tobacco abuse Current Visit: Yes Status: Chronic Plan to address problem: Smoking cessation education Consider NicoDerm transdermal while inpatient if needed (6) DVT prophylaxis Current Visit: Yes Status: Acute 11/01/2020; patient's hemoglobin corrected after 1 unit of blood and hemoglobin this morning is 8.5. Covid test is positive and ID consulted. Patient had feve r yesterday. Chest x-ray showed left lower lobe pneumonia and patient is on IV Rocephin and azithromycin. Patient has chronic right-sided weakness and neurology was consulted and, no further work-up needed. Patient has chronic sacral decubitus ulcer and before she came here she was following outpatient wound clinic and recommend to continue to follow-up as an outpatient after discharge. We will follow ID recommendation. Patient wants to go home on discharge. History Interval history: Patient was seen and evaluated this morning Patient had fever yesterday Have any complaints Patient wants to go home wants discharged Hospitalist Physical - Physical exam Narrative exam: Not in cardiopulmonary distress. The patient appeared well nourished and normally developed. Vital signs as documented. Head exam is unremarkable. No scleral icterus . Neck is without jugular venous distension, thyromegaly, or carotid bruits. Lungs are clear to auscultation. Cardiac exam reveals regular rate and Rhythm. Abdominal exam reveals normal bowel sounds, nontender, no organomegaly. Extremities are nonedematous and both femoral and pedal pulses are normal. Skin; sacral decubitus ulcer ORDER PACKER: Alert and oriented 3. No focal weakness. - Constitutional Vitals: Temp Pulse Resp BP Pulse Ox 98.8 F 75 16 142/69 100 11/01/20 03:38 11/01/20 03:38 11/01/20 03:38 11/01/20 03:38 11/01/20 03:38 General appearance: Present: no acute distress, well-nourished, other (Moderate Pallor) Results - Labs CBC & Chem 7: 11/01/20 04:15 11/01/20 04:15 Labs: Laboratory Last Values WBC 6.0 K/mm3 (4.5-11.0) 11/01/20 04:15 RBC 3.98 M/mm3 (3.65-5.03) 11/01/20 04:15 Hgb 8.5 gm/dl (10.1-14.3) L 11/01/20 04:15 Hct 28.9 % (30.3-42.9) L 11/01/20 04:15 MCV 73 fl (79-97) L 11/01/20 04:15 MCH 21 pg (28-32) L 11/01/20 04:15 MCHC 30 % (30-34) 11/01/20 04:15 RDW 22.0 % (13.2-15.2) H 11/01/20 04:15 Plt Count 297 K/mm3 (140-440) 11/01/20 04:15 Lymph % (Auto) 34.4 % (13.4-35.0) 11/01/20 04:15 [place] % (Auto) 8.0 % (0.0-7.3) H 11/01/20 04:15 Eos % (Auto) 3.0 % (0.0-4.3) 11/01/20 04:15 Baso % (Auto) 0.9 % (0.0-1.8) 11/01/20 04:15 Lymph # (Auto) 2.1 K/mm3 (1.2-5.4) 11/01/20 04:15 [place] # (Auto) 0.5 K/mm3 (0.0-0.8) 11/01/20 04:15 Eos # (Auto) 0.2 K/mm3 (0.0-0.4) 11/01/20 04:15 Baso # (Auto) 0.1 K/mm3 (0.0-0.1) 11/01/20 04:15 Seg Neutrophils % 53.7 % (40.0-70.0) 11/01/20 04:15 Seg Neutrophils # 3.2 K/mm3 (1.8-7.7) 11/01/20 04:15 PT 14.6 Sec. (12.2-14.9) 11/01/20 04:15 INR 1.16 (0.87-1.13) H 11/01/20 04:15 D-Dimer 205.48 ng/mlDDU (0-234) 10/31/20 20:56 Sodium 139 mmol/L (137-145) 11/01/20 04:15 Potassium 3.8 mmol/L (3.6-5.0) 11/01/20 04:15 Chloride 103.3 mmol/L (98-107) 11/01/20 04:15 Carbon Dioxide 23 mmol/L (22-30) 11/01/20 04:15 Anion Gap 17 mmol/L 11/01/20 04:15 BUN 11 mg/dL (7-17) 11/01/20 04:15 Creatinine 0.6 mg/dL (0.6-1.2) 11/01/20 04:15 Estimated GFR > 60 ml/min 11/01/20 04:15 BUN/Creatinine Ratio 18 % 11/01/20 04:15 Glucose 85 mg/dL (65-100) 11/01/20 04:15 Lactic Acid 1.20 mmol/L (0.7-2.0) 10/30/20 18:55 Calcium 9.0 mg/dL (8.4-10.2) 11/01/20 04:15 Ferritin 9.5 ng/mL (10.0-200.0) L 10/31/20 20:56 Total Bilirubin < 0.20 mg/dL (0.1-1.2) 10/30/20 18:55 AST 18 units/L (5-40) 10/30/20 18:55 ALT 8 units/L (7-56) 10/30/20 18:55 Alkaline Phosphatase 204 units/L (35-129) H 10/30/20 18:55 Lactate Dehydrogenase 197 units/L (91-180) H 10/31/20 20:56 C-Reactive Protein 0.10 mg/dL (0.00-1.30) 10/31/20 20:56 Total Protein 7.8 g/dL (6.3-8.2) 10/30/20 18:55 Albumin 3.8 g/dL (3.9-5) L 10/30/20 18:55 Albumin/Globulin Ratio 1.0 % 10/30/20 18:55 Coronavirus (PCR) Positive (Negative) A 10/31/20 Unknown Blood Type A POSITIVE 10/30/20 20:47 Antibody Screen Negative 10/30/20 20:47 Crossmatch See Detail 10/30/20 20:47 Christianson/IV: Voiding Method External Female Catheter IV Catheter Type [Right INT / Saline Lock Antecubital] Active Medications - Current Medications Current Medications: Generic Name Dose Route Start Last Admin Trade Name Freq PRN Reason Stop Dose Admin Acetaminophen 650 mg 10/31/20 01:08 Acetaminophen 325 Mg Tab PO Q4H PRN Pain MILD(1-3)/Fever >100.5/ESPINO Amlodipine Besylate 5 mg 10/31/20 17:00 10/31/20 19:17 Amlodipine 5 Mg Tab PO 5 mg QDAY MYLES Administration Azithromycin 500 mg 10/31/20 17:00 10/31/20 19:19 Azithromycin 250 Mg Tab PO 11/02/20 10:01 500 mg QDAY MYLES Administration Protocol Docusate Sodium 100 mg 10/31/20 22:00 10/31/20 21:50 Docusate Sodium 100 Mg Cap PO 100 mg BID MYLES Administration Enoxaparin Sodium 40 mg 10/31/20 18:00 10/31/20 19:21 Enoxaparin 40 Mg/0.4 Ml Inj SUB-Q 40 mg QDAY@1000 MYLES Administration Hydralazine HCl 15 mg 10/31/20 16:29 Hydralazine 20 Mg/1 Ml Inj IV Q4HR PRN Hypertension Ceftriaxone Sodium 2 gm in 100 mls @ 200 mls/hr 10/31/20 17:00 10/31/20 19:17 Rocephin/Ns 2 Gm/100 Ml IV 11/04/20 10:29 200 mls/hr Q24HR MYLES Administration Protocol Magnesium Hydroxide 30 ml 10/31/20 01:08 Magnesium Hydroxide (Mom) Oral Liqd Udc PO Q4H PRN Constipation Morphine Sulfate 2 mg 10/31/20 01:08 10/31/20 13:58 Morphine 2 Mg/1 Ml Inj IV 2 mg Q4H PRN Administration Pain, Moderate (4-6) Ondansetron HCl 4 mg 10/31/20 01:08 Ondansetron 4 Mg/2 Ml Inj IV Q8H PRN Nausea And Vomiting Oxybutynin Chloride 5 mg 10/31/20 13:00 10/31/20 21:49 Oxybutynin 5 Mg Tab PO 5 mg BID MYLES Administration Oxycodone/Acetaminophen 2 tab 10/31/20 16:01 11/01/20 03:51 Oxycodone /Acetaminophen 5-325mg Tab PO 2 tab Q6H PRN Administration Pain, Moderate (4-6) Pseudoephedrine/Acetam/Chlorphenir 10 ml 10/31/20 16:32 Guaifenesin/Codeine 100-10mg Oral Liqd 5 Ml PO Q4H PRN Cough Sodium Chloride 10 ml 10/31/20 10:00 10/31/20 21:50 Sodium Chloride 0.9% 10 Ml Flush Syringe IV 10 ml BID MYLES Administration Sodium Chloride 10 ml 10/31/20 01:08 Sodium Chloride 0.9% 10 Ml Flush Syringe IV PRN PRN LINE FLUSH Nutrition/Malnutrition Assess - Dietary Evaluation Nutrition/Malnutrition Findings: Nutrition Notes Start: 10/31/20 13:29 Freq: Status: Active Protocol: Document 10/31/20 13:29 CW (Rec: 10/31/20 13:31 CW [email or web address]) Co-Sign 10/31/20 13:29 MK Nutrition Notes Need for Assessment generated from: plumbing mechanic,MST Initial or Follow up Brief Note Current Diagnosis Decubitus(Pressure Ulcer) Other Pertinent Diagnosis anemia Current Diet Regular Subjective/Other Information RN consult for skin risk and MST screening. Pt not in the room at time of visit x2. Nutrition Intervention Add Supplement/Snack (indicate name/kcal Ensure Enlive BID /protein ) Provides kCal: 700 Provides Protein (gm) 40 Follow-Up By: 11/03/20 Additional Comments FU skin risk and MST assessment
[2020-11-01] MEDS: amLODIPine 5 MG TAB PO SCH (09:34)
[2020-11-01] MEDS: AZITHROMYCIN 250 MG TAB PO SCH (09:34)
[2020-11-01] MEDS: DOCUSATE SODIUM 100 MG CAP PO SCH ×2 (09:34→21:38)
[2020-11-01] MEDS: OXYBUTYNIN 5 MG TAB PO SCH ×2 (09:35→21:38)
[2020-11-01] MEDS: ENOXAPARIN 40 MG/0.4 ML INJ SUB-Q SCH (09:35)
[2020-11-01] MEDS: cefTRIAXone/NS 2 GM/100 ML 2 GM/100 ML BAG IV SCH (09:35)
[2020-11-01] MEDS: MORPHINE 2 MG/1 ML INJ IV PRN ×2 (14:43→21:48)
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
[2020-11-02] MEDS: oxyCODONE /ACETAMINOPHEN 5-325MG TAB PO PRN ×4 (05:34→23:42)
[2020-11-02 08:54] LABS: Blood Urea Nitrogen 9 mg/dL (7-17); Calcium 8.7 mg/dL (8.4-10.2); Hemolysis Index 0
[2020-11-02 08:59] LABS: BUN/Creatinine Ratio 15
[2020-11-02 10:16] LABS: Basophils # (Auto) 0.1 K/mm3 (0.0-0.1); Eosinophils # (Auto) 0.2 K/mm3 (0.0-0.4); Eosinophils % (Auto) 4.9 % (0.0-4.3); Monocytes # (Auto) 0.5 K/mm3 (0.0-0.8); Monocytes % (Auto) 11.7 % (0.0-7.3)
[2020-11-02 10:28] LABS: Hematocrit 27.5 % (30.3-42.9); Hemoglobin 8.2 gm/dl (10.1-14.3); Mean Corpuscular HGB Conc 30 % (30-34); Mean Corpuscular Volume 70 fl (79-97); Red Blood Count 3.91 M/mm3 (3.65-5.03)
[2020-11-02 10:29] LABS: Basophils % (Auto) 1.6 % (0.0-1.8); Platelet Count 342 K/mm3 (140-440); Red Cell Distribution Width 22.6 % (13.2-15.2)
[2020-11-02 10:30] LABS: Lymphocytes # (Auto) 1.9 K/mm3 (1.2-5.4)
[2020-11-02] MEDS: DOCUSATE SODIUM 100 MG CAP PO SCH ×2 (11:10→21:29)
[2020-11-02] MEDS: ENOXAPARIN 40 MG/0.4 ML INJ SUB-Q SCH (11:11)
[2020-11-02] MEDS: amLODIPine 5 MG TAB PO SCH (11:11)
[2020-11-02] MEDS: OXYBUTYNIN 5 MG TAB PO SCH ×2 (11:11→21:30)
[2020-11-02] MEDS ORDERED: BENZOCAINE/MENTHOL LOZENGE MM PRN (15:08)
[2020-11-02] MEDS: MORPHINE 2 MG/1 ML INJ IV PRN ×2 (15:32→21:33)
[2020-11-03] MEDS: MORPHINE 2 MG/1 ML INJ IV PRN (03:41)
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
[2020-11-03] MEDS: amLODIPine 5 MG TAB PO SCH (10:00)
[2020-11-03] MEDS ORDERED: NICOTINE 14 MG/24 HR PATCH TD SCH (10:00)
[2020-11-03] MEDS: OXYBUTYNIN 5 MG TAB PO SCH (10:00)
[2020-11-03] MEDS: DOCUSATE SODIUM 100 MG CAP PO SCH (10:00)
[2020-11-03] MEDS: ENOXAPARIN 40 MG/0.4 ML INJ SUB-Q SCH (10:00)
[2020-11-03] MEDS: oxyCODONE /ACETAMINOPHEN 5-325MG TAB PO PRN ×2 (11:29→18:33)
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
[2020-11-03 19:07] VITALS: BP 136/66
== END 2020-11-03 19:33 | disposition home health service (06) | DRG 177 ==
LOC: ED 15:13 → 3A 21:43 → OBSVTOIN 10-31 11:46
PROVIDERS: ADMIT Internal Medicine Geriatric Medicine; ATTEND Internal Medicine
PROC: 30233N1 Transfusion of Nonautologous Red Blood Cells into Peripheral Vein, Percutaneous Approach (ICD-10-PCS; principal; 2020-10-30)
DX: U07.1 COVID-19 (principal); L89.313 Pressure ulcer of right buttock, stage 3; J12.89 Other viral pneumonia; D64.9 Anemia, unspecified; F17.200 Nicotine dependence, unspecified, uncomplicated; Z86.711 Personal history of pulmonary embolism; R03.0 Elevated blood-pressure reading, without diagnosis of hypertension
CPT/HCPCS: 36415; 71045; 72220; 80048; 80053; 82140; 82728; 82947; 83615; 84145; 85018; 85025; 85379; 85610; 86140; 86850; 86900; 86901; 86920; 90471; 96365; 96375; 96376; 99406; G0378; J0696; J1650; J2270; J7030; P9016; U0003

== ENCOUNTER 2020-11-19 09:49 | Outpatient (CLI) | payer MEDICARE ==
[2020-11-19] MEDS ORDERED: LIDOCAINE (4%) 40 MG/ML TOPICAL SOLN 50 ML BOTTLE TP ONE (10:08)
== END 2020-11-19 09:50 | disposition home or self-care (01) ==
LOC: WOUND 09:49
PROVIDERS: ATTEND Surgery
DX: L89.313 Pressure ulcer of right buttock, stage 3 (principal); F32.9 Major depressive disorder, single episode, unspecified; F17.210 Nicotine dependence, cigarettes, uncomplicated; Z86.718 Personal history of other venous thrombosis and embolism; Z96.651 Presence of right artificial knee joint

== ENCOUNTER 2020-11-26 09:55 | Outpatient (CLI) | payer MEDICARE ==
[2020-11-26] MEDS ORDERED: LIDOCAINE (4%) 40 MG/ML TOPICAL SOLN 50 ML BOTTLE TP SCH (10:30)
== END 2020-11-26 09:56 | disposition home or self-care (01) ==
LOC: WOUND 09:55
PROVIDERS: ATTEND Surgery
DX: L89.313 Pressure ulcer of right buttock, stage 3 (principal); F32.9 Major depressive disorder, single episode, unspecified; F17.210 Nicotine dependence, cigarettes, uncomplicated; Z86.718 Personal history of other venous thrombosis and embolism; Z96.651 Presence of right artificial knee joint

== ENCOUNTER 2022-07-16 22:40 | Emergency (ER) | payer MEDICARE ==
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
[2022-07-17 11:13] VITALS: BP 181/92
== END 2022-07-17 11:13 | disposition home or self-care (01) ==
LOC: ED 22:40
DX: L89.91 Pressure ulcer of unspecified site, stage 1 (principal); I26.99 Other pulmonary embolism without acute cor pulmonale; M19.90 Unspecified osteoarthritis, unspecified site; Z79.899 Other long term (current) drug therapy; F17.200 Nicotine dependence, unspecified, uncomplicated
CPT/HCPCS: 99282

== ENCOUNTER 2022-07-28 13:05 | Outpatient (CLI) | payer MEDICARE | END 2022-07-28 13:06 | disposition home or self-care (01) | LOC: WOUND 13:05 | PROVIDERS: ATTEND Surgery | DX: L89.311 Pressure ulcer of right buttock, stage 1 (principal); G82.22 Paraplegia, incomplete; F32.A Depression, unspecified; F17.290 Nicotine dependence, other tobacco product, uncomplicated; Z86.718 Personal history of other venous thrombosis and embolism; Z96.651 Presence of right artificial knee joint; Z98.890 Other specified postprocedural states; Z79.899 Other long term (current) drug therapy | CPT/HCPCS: 99212; G0463 ==